=== PATIENT | male | born 1995 | race African-American/Black ===

== ENCOUNTER 2017-11-28 06:25 | Emergency (ER) | payer SELFPAY ==
[~2017-11-28] VITALS: Ht 193 cm; Wt 80.6 kg
[2017-11-28 06:26] VITALS: BP 135/81
[2017-11-28] MEDS ORDERED: DEXAMETHASONE 4 MG/ML, 1ML IM ONE (07:00)
[2017-11-28] MEDS ORDERED: DEXAMETHASONE 4 MG/ML, 1ML ONE (07:00)
== END 2017-11-28 09:35 | disposition home or self-care (01) ==
LOC: ED 07:34
DX: J02.9 Acute pharyngitis, unspecified (principal); J06.9 Acute upper respiratory infection, unspecified
CPT/HCPCS: 36415; 71046; 86308; 96372; 99285; J1100

== ENCOUNTER 2018-05-25 01:38 | Emergency (ER) | payer OTHER ==
[~2018-05-25] VITALS: Ht 188 cm; Wt 77.6 kg
[2018-05-25 01:39] VITALS: BP 144/95
[2018-05-25] MEDS ORDERED: DIPH,PERTUSS(ACELL),TET VAC/PF 0.5 ML IM-VACC ONE ×2 (02:00→02:03)
[2018-05-25] MEDS ORDERED: LIDOCAINE-MPF 1%, 5ML INFIL ONE (02:00)
[2018-05-25] MEDS ORDERED: LIDOCAINE-MPF 1%, 5ML ONE (02:03)
== END 2018-05-25 02:46 | disposition home or self-care (01) ==
LOC: ED 02:40
DX: S61.216A Laceration without foreign body of right little finger without damage to nail, initial encounter (principal); Z00.00 Encounter for general adult medical examination without abnormal findings; F17.200 Nicotine dependence, unspecified, uncomplicated; W26.0XXA Contact with knife, initial encounter; Y93.89 Activity, other specified; Y92.89 Other specified places as the place of occurrence of the external cause; Y99.8 Other external cause status
CPT/HCPCS: 12041; 99284